=== PATIENT | female | born 1935 | race Caucasian/White ===

== ENCOUNTER 2018-11-10 20:46 | Emergency (ER) | payer MEDICARE | END 2018-11-10 22:24 | disposition home or self-care (01) | LOC: EDH 20:46 | DX: S82.002A Unspecified fracture of left patella, initial encounter for closed fracture (principal); M79.652 Pain in left thigh; W18.39XA Other fall on same level, initial encounter; Y93.01 Activity, walking, marching and hiking; Y92.89 Other specified places as the place of occurrence of the external cause; Y99.8 Other external cause status | CPT/HCPCS: 29505; 73552; 73562 ==

== ENCOUNTER 2021-09-29 13:27 | Emergency (ER) | payer MEDICARE ==
[~2021-09-29] VITALS: Ht 180.3 cm; Wt 61.2 kg
[2021-09-29] MEDS ORDERED: AMOX/CLAV 875/125MG TAB PO ONE (14:00)
[2021-09-29] MEDS ORDERED: ACETAMINOPHEN 500 MG TABLET PO ONE (14:00)
[2021-09-29] MEDS ORDERED: LIDOCAINE HCL MPF 1% 5ML VIAL ONE (14:55)
[2021-09-29] MEDS ORDERED: AMOX1TAB16 PO (15:39)
[2021-09-29 15:58] VITALS: BP 150/54
== END 2021-09-29 16:02 | disposition home or self-care (01) ==
LOC: EDH 13:27
DX: S02.5XXA Fracture of tooth (traumatic), initial encounter for closed fracture (principal); S00.551A Superficial foreign body of lip, initial encounter; W01.198A Fall on same level from slipping, tripping and stumbling with subsequent striking against other object, initial encounter; Y93.89 Activity, other specified; Y92.89 Other specified places as the place of occurrence of the external cause; Y99.8 Other external cause status
CPT/HCPCS: 10120; 70140; 99284; J3490

== ENCOUNTER 2024-11-17 21:57 | Observation (INO) | payer MEDICARE ==
[~2024-11-17] VITALS: Ht 177.8 cm; Wt 60.8 kg
[~2024-11-17 21:57] MED LIST: AMOX1TAB16 PO
--- NOTE | 2024-11-17 22:38 | ERN ---
ED Note History of Present Illness Stated Complaint: C/O WOUND TO LEFT LOWER LEG Chief Complaint: Wound Check Time Seen by MD: 21:50 Dictation: This is an 89-year-old female who presented to the emergency room with her friend with complaints of nonhealing left lower extremity wound. She stated that initially it started off as a small bump a few weeks ago and the patient has scratched it with scab formation. Subsequently the scab fell off with the wound never really healed with increasing erythema and swelling extending down to the ankle area. She was experiencing some pain. She denied any fevers chills or rigors. 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 She stated that she was at a friend's gathering and many people have noticed her wound including a couple of physicians raising concern about the severity and she came into the emergency room for evaluation Temperature 98.4� pulse 74 respirations 20 blood pressure 110 over 74 with a pulse oximetry of 98% on room air She denied any travel or exotic sports or swimming. She also does not recall if she had an insect bite to begin with. Allergies: Coded Allergies: No Known Drug Allergies (Unverified Allergy, Unknown, 09/29/21) Home Meds Active Scripts Amoxicillin/Potassium Clav (Amox Tr-K Clv 875-125 mg Tab) 1 Each Tablet, 1 EACH PO BID, #14 TAB Prov:CHER SAENZ 09/29/21 Past Medical History Past Medical History: No Pertinent History Surgical History: None Family History: Negative Social History: Negative History: Not Applicable RN Note Reviewed/Agreed w/PFSH: Yes Review of System Dictation Constitutional: Negative for fever,chills, and weight loss Eyes: Negative for injury, pain,redness, and discharge ENT: Negative for injury,pain or swelling Cardiovascular: Negative for chest pain, palpitations, and edema Respiratory: Negative for shortness of breath, cough, and wheezing, Abdomen/GI: Negative for abdominal pain, nausea, vomiting, diarrhea, and constipation Back: Negative for injury and pain : Negative for injury, bleeding and discharge MS/Extremity: Negative for injury and deformity presence of cellulitis, ulceration erythema and swelling on the medial aspect of left lower extremity. Skin: Negative for rash, and discoloration Neuro: Negative for headache, weakness, numbness, tingling, and seizure Psych: Negative for suicide ideation, homicidal ideation, and hallucinations Initial Vital Sign VS Vital Signs Date Time Temp Pulse Resp B/P (MAP) Pulse Ox O2 Delivery O2 Flow Rate FiO2 11/17/24 21:59 98.4 74 20 110/74 97 Room Air Physical Exam Dictation General: awake, alert, NAD very thin emaciated female very hard of hearing Head/Face: Normocephalic, atraumatic Eyes: PERRL, EOMI, vision at baseline ENT: oral cavity clear, TMs clear, no signs of infection Neck: Trachea midline, supple, no nuchal rigidity Cardiovascular: RRR, normal S1/S2, No MRGs, no JVD Respiratory: CTAB, no respiratory distress, No rales or wheezes Abdomen: Soft, non-tender, non-distended, normal bowel sounds, no guarding or rebound. Skin: Warm, dry, normal turgor, no rash MS/Extremity: Pulses equal, no cyanosis, neurovascular intact, FROM Neuro: COAx4, GCS 15, strength 5/5, CN 2-12 intact, normal cerebellar exam, normal gait, Psych: Normal behavior, mood, and affect normal Extremities-trace edema without any palpable cords, Homans sign is negative 2- 1/2 cm ulceration on the medial aspect of the left lower extremity above the medial malleolus. Surrounding erythema and swelling extending into the ankle a malcolm noted. Central part of the ulceration is very dark and necrotic. Results (Laboratory/Radiology) Laboratory/Radiology Laboratory Tests Test 11/17/24 23:27 White Blood Count 7.2 K/uL (4.8-10.8) Red Blood Count 3.85 MIL/uL (4.00-5.50) L Hemoglobin 12.3 g/dL (12.0-16.0) Hematocrit 38.3 % (36-48) Mean Corpuscular Volume 99.5 fL (79-99) H Mean Corpuscular Hemoglobin 31.9 pg (27.0-33.0) Mean Corpuscular Hemoglobin Concent 32.1 g/dL (32.0-36.0) Red Cell Distribution Width 13.0 % (11.0-15.5) Platelet Count 117 K/uL (130-400) L Mean Platelet Volume 13.0 fL (7.5-10.5) H Immature Granulocyte % (Auto) 0.3 % (0-1) Neutrophils (%) (Auto) 59.4 % (40.0-77.0) Lymphocytes (%) (Auto) 30.3 % (21.0-51.0) Monocytes (%) (Auto) 8.2 % (3.0-13.0) Eosinophils (%) (Auto) 1.2 % (0.0-8.0) Basophils (%) (Auto) 0.6 % (0.0-5.0) Neutrophils # (Auto) 4.3 K/uL (1.8-7.7) Lymphocytes # (Auto) 2.2 K/uL (1.0-4.8) Monocytes # (Auto) 0.6 K/uL (0.1-1.0) Eosinophils # (Auto) 0.09 K/uL (0.00-0.70) Basophils # (Auto) 0.04 K/uL (0.00-0.20) Absolute Immature Granulocyte (auto 0.02 K/uL (0-1) Nucleated Red Blood Cells 0.0 % (0.0-0.19) Sodium Level 143 mmol/L (136-145) Potassium Level 4.4 mmol/L (3.5-5.1) Chloride Level 106 mmol/L (101-111) Carbon Dioxide Level 32 mmol/L (21-32) Blood Urea Nitrogen 19 mg/dL (7-18) H Creatinine 0.7 mg/dL (0.5-1.0) Glomerular Filtration Rate Calc 84 mL/min (>90) Random Glucose 103 mg/dL (70-105) Lactic Acid Level 1.0 mmol/L (0.8-2.5) Total Calcium 9.0 mg/dL (8.5-10.1) C-Reactive Protein, Quantitative 8.50 mg/L (0.5-3.0) H Labs Reviewed?: Yes ED Course ED Course Orders Procedure Category Date Status Time Cbc With Differential LAB 11/17/24 Complete 23:19 Basic Metabolic Panel LAB 11/17/24 Complete 23:19 Urinalysis Profile LAB 11/17/24 Logged 23:19 Crp Quantitative LAB 11/17/24 Complete 23:19 Us Venous Doppler US 11/17/24 Taken Unilateral 23:19 Blood Cult SAVANNA 11/17/24 In Process 23:19 Lactic Acid LAB 11/17/24 Complete 23:19 0.9%Nacl 1000ml (Ns PHA 11/17/24 In Process 1000ml) 23:30 Zosyn 3.375gm+Ns 50ml PHA 11/18/24 Complete (Zosyn 3.375gm+Ns 01:00 Us Arterial Unila Low US 11/18/24 Transmitted Ext Dupl 02:00 Edm Admit Bridge Order ADM 11/18/24 Transmitted 02:00 Current Medications Medications (Trade) Dose Ordered Sig/Sean Route PRN Reason Start Time Stop Time Status Last Admin Dose Admin Piperacillin Sod/ Tazobactam Sod (Zosyn 3.375gm+NS 50ml) 3.375 gm ONCE ONCE IV 11/18/24 01:00 11/18/24 01:01 DC 11/18/24 00:54 Sodium Chloride 1,000 ml @ 125 mls/hr ONCE ONCE IV 11/17/24 23:30 11/18/24 07:29 11/17/24 23:35 Vital Signs Date Time Temp Pulse Resp B/P (MAP) Pulse Ox O2 Delivery O2 Flow Rate FiO2 11/17/24 21:59 98.4 74 20 110/74 97 Room Air We will perform diagnostic labs, advanced imaging and administer medications according to the patient's complaint. Once the results are available, will review and personally interpreted the labs to rule out any acute life- threatening emergency the trach require immediate intervention and treatment. I will then re-evaluate the patient after treatment and diagnostic exams have return to determine whether the patient requires any further testing, can safely be discharged home or need further admission to hospital for additional treatment and evaluation. Reviewed labs CBC BNP 7 with a normal limits. Venous Doppler study of left lower extremity is negative for DVT. There is presence of lymph node in the left inguinal area which is about 1.6 cm. I had a long discussion with the patient and explained to her in view of nonhealing wound with presence of surrounding erythema swelling and cellulitis needs further evaluation including debridement, extent of the infection including for osteomyelitis and arterial studies to assess for delayed healing. She verbalized full understanding and is agreeable. 2:02 a.m. patient accepted by for admission and further management Medical Decision Making MDM MDM: Differential diagnosis: Nonhealing ulcer-multiple etiologies entertained- bacterial infection, erysipelas, atypical infection, arterial insufficiency delaying wound healing, osteomyelitis Rationale: Tests considered and ordered secondary to shared decision making include: labs, ECG and radiology Previous outside records reviewed: Old ER visits. Risk of complication and/or morbidity or mortality of patient management: None Medications-Per medication reconciliation Need for hospitalization: Patient does meet criteria for hospitalization. Need for emergency major/minor surgery: No There are no social concerns with this patient. Prescription drug management Prescriptions will include symptomatic care Patient's prior external medical records from other ER visits were reviewed by me as indicated. Prior testing and results from previous visits were reviewed. Prior tests were taken into account with medical decision making and resource utilization, independent historian/historians were used to obtain complete medical history. I independently interpreted the test that were performed, results were reviewed by me and considered findings on radiology if ordered. Medical management and examination interpretation discussions were had by me with other qualified healthcare professionals as indicated for the patient's care. Problem List Problem List: (1) Cellulitis and abscess of left lower extremity (2) Complicated wound infection (3) Non-healing non-surgical wound DX & DISP Disposition: Inpatient Decision to Admit Time: 01:36 Departure Impression: Primary Impression: Complicated wound infection Additional Impressions: Non-healing non-surgical wound, Cellulitis and abscess of left lower extremity Condition: Stable Additional Instructions: Patient was informed of all the diagnostic labs and procedures conducted in the emergency room today and demonstrated understanding of the results. I personally reviewed and interpreted all the diagnostic exams performed in the ER today. The patient will be admitted to the hospital for further treatment and evaluation. Disposition-admit to facility Condition-stable/guarded Course-uncertain at this time Pain status-decreased Assessment-exam unchanged Admission Certification- I certify that the patients status is appropriate and is based on my best clinical judgment and the patient's condition as documented in the medical records Referrals: BRANDO STEVE MD (PCP) CELINA COTE MD November 17, 2024 22:38
[2024-11-17] MEDS: 0.9%NACL 1000ML 1,000 ML IV ONE (23:35)
[2024-11-17 23:39] LABS: BASOPHILS # (AUTO) 0.04 K/uL (0.00-0.20); BASOPHILS % (AUTO) 0.6 % (0.0-5.0); EOSINOPHILS # (AUTO) 0.09 K/uL (0.00-0.70); EOSINOPHILS % (AUTO) 1.2 % (0.0-8.0); HEMATOCRIT 38.3 % (36-48); IMMATURE GRANULOCYTE ABSOLUTE 0.02 K/uL (0-1); LYMPHOCYTES # (AUTO) 2.2 K/uL (1.0-4.8); LYMPHOCYTES % (AUTO) 30.3 % (21.0-51.0); MEAN CORPUSCULAR HEMOGLOBIN 31.9 pg (27.0-33.0); MEAN CORPUSCULAR HGB CONC 32.1 g/dL (32.0-36.0); MEAN CORPUSCULAR VOLUME 99.5 fL (79-99); MONOCYTES # (AUTO) 0.6 K/uL (0.1-1.0); MONOCYTES % (AUTO) 8.2 % (3.0-13.0); NEUTROPHILS # (AUTO) 4.3 K/uL (1.8-7.7); NEUTROPHILS % (AUTO) 59.4 % (40.0-77.0); PLATELET COUNT (AUTO) 117 K/uL (130-400); RED BLOOD CELL COUNT(AUTO) 3.85 MIL/uL (4.00-5.50); WHITE BLOOD COUNT (AUTO) 7.2 K/uL (4.8-10.8)
[2024-11-17 23:54] LABS: CREATININE 0.7 mg/dL (0.5-1.0); POTASSIUM 4.4 mmol/L (3.5-5.1)
[2024-11-18] MEDS: ZOSYN 3.375GM +NS 50ML IV ONE (00:54)
--- NOTE | 2024-11-18 02:13 | NUR ---
PATIENT REPORTS SHE DOES NOT TAKE ANY PRESCRIBED MEDICATIONS
[2024-11-18] MEDS: HEParin 5,000 UNIT VIAL SQ SCH (02:40)
[2024-11-18 03:37] LABS: APPEARANCE,URINE CLEAR (CLEAR); BILIRUBIN,URINE NEGATIVE (NEGATIVE); COLOR,URINE LIGHT-YELLOW (YELLOW); GLUCOSE, URINE (UA) NEGATIVE (NEGATIVE); KETONES,URINE NEGATIVE (NEGATIVE); LEUKOCYTE ESTERASE ,URINE 250 Leu/uL (NEGATIVE); NITRATE,URINE NEGATIVE (NEGATIVE); OCCULT BLOOD,URINE NEGATIVE (NEGATIVE); PROTEIN,URINE NEGATIVE (NEGATIVE); UROBILINOGEN,URINE 0.2 mg/dL (0.2-1.0)
[2024-11-18 03:43] LABS: ADD UA MICROSCOPIC YES
[2024-11-18 03:45] LABS: MUCUS,URINE RARE LPF (None Seen); RBC,URINE 0-1 /HPF (0-1); SQUAMOUS EPITHELIAL CELL,UR RARE /HPF (0-2)
[2024-11-18 06:30] LABS: BASOPHILS # (AUTO) 0.03 K/uL (0.00-0.20); BASOPHILS % (AUTO) 0.5 % (0.0-5.0); EOSINOPHILS # (AUTO) 0.09 K/uL (0.00-0.70); EOSINOPHILS % (AUTO) 1.4 % (0.0-8.0); HEMATOCRIT 39.1 % (36-48); IMMATURE GRANULOCYTE ABSOLUTE 0.02 K/uL (0-1); LYMPHOCYTES # (AUTO) 2.3 K/uL (1.0-4.8); LYMPHOCYTES % (AUTO) 35.6 % (21.0-51.0); MEAN CORPUSCULAR HEMOGLOBIN 31.6 pg (27.0-33.0); MEAN CORPUSCULAR VOLUME 98.7 fL (79-99); MONOCYTES # (AUTO) 0.4 K/uL (0.1-1.0); MONOCYTES % (AUTO) 6.3 % (3.0-13.0); NEUTROPHILS # (AUTO) 3.7 K/uL (1.8-7.7); NEUTROPHILS % (AUTO) 55.9 % (40.0-77.0); PLATELET COUNT (AUTO) 134 K/uL (130-400); RED BLOOD CELL COUNT(AUTO) 3.96 MIL/uL (4.00-5.50); RED CELL DISTRIBUTION WIDTH 12.9 % (11.0-15.5); WHITE BLOOD COUNT (AUTO) 6.5 K/uL (4.8-10.8)
[2024-11-18 06:51] LABS: ALBUMIN 4.2 g/dL (3.5-5.0); BILIRUBIN,TOTAL 0.9 mg/dL (0.2-1.0); CREATININE 0.8 mg/dL (0.5-1.0); POTASSIUM 3.8 mmol/L (3.5-5.1); TOTAL PROTEIN, SERUM 6.8 g/dL (6.0-8.3)
--- NOTE | 2024-11-18 07:18 | NUR ---
DR STEVE AT BEDSIDE
--- NOTE | 2024-11-18 07:37 | NUR ---
DR STEVE ADVISED TO DISCHARGE PT AFTER HER ANTIBIOTIC WAS GIVEN.
[2024-11-18] MEDS: ZOSYN 3.375GM +NS 50ML IVPB SCH (08:06)
--- NOTE | 2024-11-18 08:58 | HMCIMG ---
Exam Type: US ARTERIAL BILAT LOW EXT DUPL Clinical Information: CELLULITIS, ULCERS Comparison: None Findings: Diffuse bilateral plaque is identified. There are normal triphasic waveforms of the bilateral common femoral arteries and the left posterior tibial artery. There are biphasic waveforms of the other vessels bilaterally consistent with moderate nonocclusive hemodynamically significant disease. IMPRESSION: Peripheral vascular disease as noted.
--- NOTE | 2024-11-18 09:20 | NUR ---
PT RECEIVED A DOSE OF ZOSYN. IV REMOVED. SHE IS DISCHARGED TO HOME PER DR STEVE'S INSTRUCTION.
--- NOTE | 2024-11-18 09:22 | HMCIMG ---
Exam Type: US VENOUS DOPPLER UNILATERAL Clinical Information: left leg varicose veins and non helaing ulcer, pain and swelling Comparison: None Findings: The examination shows normal deep venous system. There is normal compressibility at all levels. There is no intraluminal clot. There is no occlusion. Adequate response is obtained on augmentation. Impression: No evidence of DVT.
[2024-11-18 09:35] VITALS: BP 128/53; PULSE 64; RESP 16; TEMP 97.9; O2SAT 100
--- NOTE | 2024-11-18 22:35 | HP ---
HISTORY AND PHYSICAL NOTE DATE OF CONSULTATION: 11/18/24 REASON FOR CONSULTATION: Left leg wound HISTORY OF PRESENT ILLNESS: This is an 89-year-old female who presented to the emergency room with her friend with complaints of nonhealing left lower extremity wound. She stated that initially it started off as a small bump a few weeks ago and the patient has scratched it with scab formation. Subsequently the scab fell off with the wound never really healed with increasing erythema and swelling extending down to the ankle area. She was experiencing some pain. She denied any fevers chills or rigors. 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 She stated that she was at a friend's gathering and many people have noticed her wound including a couple of physicians raising concern about the severity and she came into the emergency room for evaluation Temperature 98.4� pulse 74 respirations 20 blood pressure 110 over 74 with a pulse oximetry of 98% on room air She denied any travel or exotic sports or swimming. She also does not recall if she had an insect bite to begin with. Allergies: Coded Allergies: No Known Drug Allergies (Unverified Allergy, Unknown, 09/29/21) Home Meds Active Scripts Amoxicillin/Potassium Clav (Amox Tr-K Clv 875-125 mg Tab) 1 Each Tablet, 1 EACH PO BID, #14 TAB Prov:FITTINGCHER KETTLE ROOM HELPER 09/29/21 Past Medical History Past Medical History: No Pertinent History Surgical History: None Family History: Negative Social History: Negative History: Not Applicable RN Note Reviewed/Agreed w/PFSH: Yes ALLERGIES: Coded Allergies: No Known Drug Allergies (Unverified Allergy, Unknown, 09/29/21) HOME MEDS: Discontinued Scripts Amoxicillin/Potassium Clav (Amox Tr-K Clv 875-125 mg Tab) 1 Each Tablet, 1 EACH PO BID, #14 TAB Prov:FITTINGCHER KETTLE ROOM HELPER 09/29/21 VITAL SIGNS Vital Signs Date Time Temp Pulse Resp B/P (MAP) Pulse Ox O2 Delivery O2 Flow Rate FiO2 11/18/24 09:35 97.9 64 16 128/53 100 Room Air* 0 21 11/18/24 07:15 97.9 65 18 133/55 100 Room Air* 0 21 11/18/24 06:16 98.1 67 18 141/58 100 Room Air* 0 21 11/18/24 04:13 98.4 59 17 134/51 99 Room Air* 0 21 11/18/24 02:40 98.4 60 18 146/53 100 Room Air* 0 21 PHYSICAL EXAM Review of System Dictation Constitutional: Negative for fever,chills, and weight loss Eyes: Negative for injury, pain,redness, and discharge ENT: Negative for injury,pain or swelling Cardiovascular: Negative for chest pain, palpitations, and edema Respiratory: Negative for shortness of breath, cough, and wheezing, Abdomen/GI: Negative for abdominal pain, nausea, vomiting, diarrhea, and constipation Back: Negative for injury and pain : Negative for injury, bleeding and discharge MS/Extremity: Negative for injury and deformity presence of cellulitis, ulceration erythema and swelling on the medial aspect of left lower extremity. Skin: Negative for rash, and discoloration Neuro: Negative for headache, weakness, numbness, tingling, and seizure Psych: Negative for suicide ideation, homicidal ideation, and hallucinations LABORATORY RESULTS Laboratory Tests 11/17/24 23:27: White Blood Count 7.2, Red Blood Count 3.85, Hemoglobin 12.3, Hematocrit 38.3, Mean Corpuscular Volume 99.5, Mean Corpuscular Hemoglobin 31.9, Mean Corpuscular Hemoglobin Concent 32.1, Red Cell Distribution Width 13.0, Platelet Count 117, Mean Platelet Volume 13.0, Immature Granulocyte % (Auto) 0.3, Neutrophils (%) (Auto) 59.4, Lymphocytes (%) (Auto) 30.3, Monocytes (%) (Auto) 8.2, Eosinophils (%) (Auto) 1.2, Basophils (%) (Auto) 0.6, Neutrophils # (Auto) 4.3, Lymphocytes # (Auto) 2.2, Monocytes # (Auto) 0.6, Eosinophils # (Auto) 0.09, Basophils # (Auto) 0.04, Absolute Immature Granulocyte (auto 0.02, Nucleated Red Blood Cells 0.0, Sodium Level 143, Potassium Level 4.4, Chloride Level 106, Carbon Dioxide Level 32, Blood Urea Nitrogen 19, Creatinine 0.7, Glomerular Filtration Rate Calc 84, Random Glucose 103, Lactic Acid Level 1.0, Total Calcium 9.0, C- Reactive Protein, Quantitative 8.50 11/18/24 03:00: Urine Color LIGHT-YELLOW, Urine Appearance CLEAR, Urine pH 7.0, Urine Specific Dorothy 1.013, Urine Protein NEGATIVE, Urine Glucose (UA) NEGATIVE, Urine Ketones NEGATIVE, Urine Occult Blood NEGATIVE, Urine Nitrate NEGATIVE, Urine Bilirubin NEGATIVE, Urine Urobilinogen 0.2, Urine Leukocyte Esterase 250, Urine RBC 0-1, Urine WBC 11-25, Urine Squamous Epithelial Cells RARE, Urine Bacteria None 11/18/24 06:14: White Blood Count 6.5, Red Blood Count 3.96, Hemoglobin 12.5, Hematocrit 39.1, Mean Corpuscular Volume 98.7, Mean Corpuscular Hemoglobin 31.6, Mean Corpuscular Hemoglobin Concent 32.0, Red Cell Distribution Width 12.9, Platelet Count 134, Mean Platelet Volume 13.6, Immature Granulocyte % (Auto) 0.3, Neutrophils (%) (Auto) 55.9, Lymphocytes (%) (Auto) 35.6, Monocytes (%) (Auto) 6.3, Eosinophils (%) (Auto) 1.4, Basophils (%) (Auto) 0.5, Neutrophils # (Auto) 3.7, Lymphocytes # (Auto) 2.3, Monocytes # (Auto) 0.4, Eosinophils # (Auto) 0.09, Basophils # (Auto) 0.03, Absolute Immature Granulocyte (auto 0.02, Nucleated Red Blood Cells 0.0, Sodium Level 145, Potassium Level 3.8, Chloride Level 107, Carbon Dioxide Level 31, Blood Urea Nitrogen 15, Creatinine 0.8, Glomerular Filtration Rate Calc 71, Random Glucose 91, Total Calcium 9.0, Total Bilirubin 0.9, Aspartate Amino Transf (AST/SGOT) 25, Alanine Aminotransferase (ALT/SGPT) 15, Alkaline Phosphatase 145, Total Protein 6.8, Albumin 4.2 Microbiology Date/Time Source Procedure Growth Status 11/18/24 03:00 Urine,Clean Catch - Preliminary Resulted PROBLEM LIST: (1) Cellulitis and abscess of left lower extremity ICD Codes: L03.116 - Cellulitis of left lower limb; L02.416 - Cutaneous abscess of left lower limb PLAN Patient has decided on a oral antibiotics and follow in 1-2 days BRANDO STEVE MD November 18, 2024 22:35
--- NOTE | 2024-11-18 22:36 | DS ---
Discharge Summary DIAGNOSE(S): [Cellulitis ulcer to the left lower extremity] HOSPITAL COURSE SUMMARY: [Patient had no signs of sepsis antibiotics in emergency room resolved symptoms the largest and discharged on oral antibiotics and local wound care] SCHEDULER CONVEYOR(S): [] PROCEDURE(S)/TREATMENT(S): [] PROBLEM(S): [] FOLLOW-UP TEST(S): [Wound care] DISCHARGE INSTRUCTIONS: [Follow up in office in 1-2 days] Home Meds Discontinued Scripts Amoxicillin/Potassium Clav (Amox Tr-K Clv 875-125 mg Tab) 1 Each Tablet, 1 EACH PO BID, #14 TAB Prov:CHER SAENZ 09/29/21 BRANDO STEVE MD November 18, 2024 22:36
--- NOTE | 2024-11-18 22:37 | DS ---
Discharge Summary DIAGNOSE(S): [Cellulitis and ulcer to the left lower extremity] HOSPITAL COURSE SUMMARY: [Cellulitis ulcer to the left leg improved with one dose of antibiotic and discharged to continue oral antibiotics and local wound care] CORROSION CONTROL TECHNICIAN(S): [] PROCEDURE(S)/TREATMENT(S): [None] PROBLEM(S): [] FOLLOW-UP TEST(S): [None] DISCHARGE INSTRUCTIONS: [Follow up in office in 1-2 days] Home Meds Discontinued Scripts Amoxicillin/Potassium Clav (Amox Tr-K Clv 875-125 mg Tab) 1 Each Tablet, 1 EACH PO BID, #14 TAB Prov:CHER SAENZ 09/29/21 BRANDO STEVE MD November 18, 2024 22:37
== END 2024-11-18 09:25 | disposition home or self-care (01) ==
LOC: EDH 21:57 → INTOOBSV 11-18 02:02 → EDHIP 11-18 02:02
PROVIDERS: ADMIT Internal Medicine; ATTEND Internal Medicine
DX: L03.116 Cellulitis of left lower limb (principal); L02.416 Cutaneous abscess of left lower limb; L97.929 Non-pressure chronic ulcer of unspecified part of left lower leg with unspecified severity; R60.0 Localized edema; Z98.890 Other specified postprocedural states; Z79.899 Other long term (current) drug therapy
CPT/HCPCS: 99285; 93971; 96361 ×3; 80048; 85025 ×2; 87040 ×2; 83605; 86140; 93925; 96365; 96372; 96376; 80053; 87086; 81001; 36415 ×2; J7030; G0378; J2543 ×2; J1644; 96375